=== PATIENT | female | born 1980 | race Caucasian/White ===

== ENCOUNTER 2018-02-10 12:58 | Inpatient (IN) | payer OTHER ==
--- NOTE | 2018-02-10 13:42 | PCM.LDHP ---
L&D History of Present Illness - General Date of Service: 02/10/18 Admit Problem/Dx: Admission Diagnosis/Problem Admission Diagnosis/Problem Source of Information: Patient History Limitations: Reports: No Limitations - History of Present Illness Introduction:: 37-year-old 008 DES 02/10/18 at 40 weeks gestation estimated age presented to labor and delivery 9 cm dilated and delivered promptly thereafter. Group B strep negative. Patient of Dr. Gonzales Improves with: Reports: None Worsens with: Reports: None Associated Symptoms: Reports: N - Related Data Allergies/Adverse Reactions: Allergies Allergy/AdvReac Type Severity Reaction Status Date / Time peanut Allergy Unknown Hives Verified 05/28/16 14:18 Home Medications: Home Meds Lactobacillus Acidophilus [Probiotic] 1 tab PO DAILY 06/29/14 [History] #48/Iron Cb&Glu/FA/B6 [Citranatal B-Calm Combo Pack] 1 each PO DAILY [History] Ibuprofen [IJD: Ibuprofen] 600 mg PO Q4H PRN #30 tablet 05/30/16 [Rx] Past Medical History - Past Health History Medical/Surgical History: Denies Medical/Surgical History [employer] History: Reports: - Past Surgical History HEENT Surgical History: Reports: Oral Surgery Dermatological Surgical History: Reports: Other (See Below) Social & Family History - Tobacco Use Smoking Status *Q: Never Smoker - Recreational Drug Use Recreational Drug Use: No H&P Review of Systems - Review of Systems: Review Of Systems: See Below General: Reports: No Symptoms HEENT: Reports: No Symptoms Pulmonary: Reports: No Symptoms Cardiovascular: Reports: No Symptoms Gastrointestinal: Reports: No Symptoms Genitourinary: Reports: No Symptoms Musculoskeletal: Reports: No Symptoms Skin: Reports: No Symptoms Psychiatric: Reports: No Symptoms Neurological: Reports: No Symptoms Hematologic/Lymphatic: Reports: No Symptoms Immunologic: Reports: No Symptoms L&D Exam - Exam Exam: See Below - OB Specific Fundal Height In cm: 39 Contraction Duration (sec): 60 Contraction Frequency (min): 2 Contraction Intensity: Strong Movement: Active Heart Tones: Present Heart Tones per Min: 135 Heart Rate (FHR) Variability: Moderate (6-25 bmp) Presentation: Vertex - Stovall Score Stovall Score Cervix Position: Anterior Stovall Score Consistency: Soft Stovall Score Effacement: >80% Stovall Score Dilation: > 5 cm Stovall Score 's Station: +1, +2 Stovall Score Total: 13 - Exam General: Alert, Oriented HEENT: Conjunctiva Clear, Mucosa Moist & [place], PERRLA Neck: Supple, Trachea Midline Lungs: Clear to Auscultation, Normal Respiratory Effort Cardiovascular: Regular Rate, Regular Rhythm GI/Abdominal Exam: Normal Bowel Sounds, Soft, Non-Tender Genitourinary: Normal external exam, Normal bimanual exam, Normal speculum exam Extremities: Normal Inspection, Normal Range of Motion, Non-Tender, No Pedal Edema, Normal Capillary Refill Skin: Warm, Dry, Intact Psychiatric: Alert, Normal Affect, Normal Mood - Problem List (1) 40 weeks gestation of SNOMED Code(s): 12377056 ICD Code: Z3A.40 - 40 WEEKS GESTATION OF Status: Acute Current Visit: Yes Problem List Initiated/Reviewed/Updated: No Assessment/Plan Comment:: Plan delivery
--- NOTE | 2018-02-10 13:50 | PCM.DEL ---
L & D Note - General Info Date of Service: 02/10/18 Mother's Due Date: 02/10/18 - Delivery Note Labor: Spontaneous Delivery Outcome: Livebirth Infant Delivery Method: Spontaneous Vaginal Delivery-Single Delivery Mode: Spontaneous Presentation: Left Occiput Anterior (TROY) (Delivered 1327 hrs. 02/10 under no anesthesia over no episiotomy without laceration TROY female liveborn weight pending Apgars 8/9 thick meconium-stained amnionic fluid, nuchal cord 1, true knot in the cord, velamentous insertion of the cord.) Nuchal Cord: Present (Nuchal cord 1, true knot in the cord, velamentous insertion of the cord meconium-stained amnionic fluid) Prep: Povidone-Iodine (Betadine Anesthesia Type: None Amniotic Fluid Description: Meconium Stained Episiotomy Type: None Laceration: None Placenta: Intact, Spontaneous (Delivered at 13 ) Cord: 3 Vessels Estimated Blood Loss: 250 Resuscitation Needed: No : Suctioned, Bulb Syringe, Stimulated, Warmed, Starks Used, Warmer Used Provider: Olaf Thompson Score 1 min: 8 Score 5 min: 9 - Patient Data Lab Results Last 24 Hours: Laboratory Results - last 24 hr 02/10/18 Range/Units 13:37 POC Glucose 64 L (70-105) mg/dL - Problem List & Annotations (1) 40 weeks gestation of SNOMED Code(s): 06920009 Code(s): Z3A.40 - 40 WEEKS GESTATION OF Status: Acute Current Visit: Yes (2) Insertion, velamentous, umbilical cord SNOMED Code(s): 81824547 Code(s): O43.129 - VELAMENTOUS INSERTION OF UMBILICAL CORD, UNSP TRIMESTER Status: Acute Current Visit: Yes Qualifiers: Trimester: third trimester Qualified Code(s): O43.123 - Velamentous insertion of umbilical cord, third trimester (3) True knot of umbilical cord, delivered SNOMED Code(s): 06258009 Code(s): O69.2XX0 - LABOR AND DEL COMP BY OTH CORD ENTANGLE, W COMPRSN, UNSP Status: Acute Current Visit: Yes (4) Nuchal cord without compression, delivered, current hospitalization SNOMED Code(s): 12889155 Code(s): O69.81X0 - LABOR AND DEL COMP BY CORD AROUND NECK, W/O COMPRSN, UNSP Status: Acute Current Visit: Yes (5) Meconium stained amniotic fluid, delivered, current hospitalization SNOMED Code(s): 244429957 Code(s): O77.0 - LABOR AND DELIVERY COMPLICATED BY MECONIUM IN AMNIOTIC FLUID Status: Acute Current Visit: Yes (6) Labor, precipitous, delivered SNOMED Code(s): 080782878 Code(s): O62.3 - PRECIPITATE LABOR Status: Acute Current Visit: Yes (7) Grand multiparity in labor and delivery, delivered SNOMED Code(s): 440061608 Code(s): O09.40 - SUPERVISION OF W GRAND MULTIPARITY, UNSP TRIMESTER Status: Acute Current Visit: Yes - Problem List Review Problem List Initiated/Reviewed/Updated: No - Assessment Assessment:: Delivery accomplished quickly upon arrival to the hospital - Plan Plan:: Plan delivery
[2018-02-10] MEDS ORDERED: Acetaminophen 325 MG Tab PO PRN (14:40)
[2018-02-10] MEDS ORDERED: Docusate Sodium 100 MG Cap PO PRN (14:40)
[2018-02-10] MEDS ORDERED: Benzocaine/Menthol 20%-0.5% Spray 56 GM Canister TOP PRN (14:40)
[2018-02-10] MEDS ORDERED: Ibuprofen 600 MG Tab PO PRN (14:40)
[2018-02-10] MEDS ORDERED: Witch Hazel Medicated Pads 100/Jar TOP PRN (14:40)
[2018-02-10] MEDS ORDERED: Lanolin 100% Cream 7 GM Tube TOP PRN (14:40)
[2018-02-10] MEDS ORDERED: Oxytocin 10 Units/1 ML SDV IM ONE (19:21)
--- NOTE | 2018-02-11 08:24 | PCM.DCSUM1 ---
Discharge Summary - Hospital Course Free Text/Narrative:: [facility] L/[facility] Delivery Note Patient Name: QUITA BETANCUR Date of : 80 Patient Status: Inpatient Attending Provider: Olaf Thompson Date: 02/10/18 13:47 Initialization Date: 02/10/18 13:47 L & D Note - General Info Date of Service: 02/10/18 Mother's Due Date: 02/10/18 - Delivery Note Labor: Spontaneous Delivery Outcome: Livebirth Delivery Method: Spontaneous Vaginal Delivery-Single Infant Delivery Mode: Spontaneous Presentation: Left Occiput Anterior (TROY) (Delivered 1327 hrs. 02/10 under no anesthesia over no episiotomy without laceration TROY female liveborn weight pending Apgars 8/9 thick meconium-stained amnionic fluid, nuchal cord 1, true knot in the cord, velamentous insertion of the cord.) Nuchal Cord: Present (Nuchal cord 1, true knot in the cord, velamentous insertion of the cord meconium-stained amnionic fluid) Prep: Povidone-Iodine (Betadine Anesthesia Type: None Amniotic Fluid Description: Meconium Stained Episiotomy Type: None Laceration: None Placenta: Intact, Spontaneous (Delivered at ) Cord: 3 Vessels Estimated Blood Loss: 250 Resuscitation Needed: No : Suctioned, Bulb Syringe, Stimulated, Warmed, [place] Used, Warmer Used Provider: Olaf Thompson Score 1 min: 8 Score 5 min: 9 - Patient Data Lab Results Last 24 Hours: Laboratory Results - last 24 hr 02/10/18 Range/Units 13:37 POC Glucose 64 L (70-105) mg/dL - Problem List & Annotations (1) 40 weeks gestation of SNOMED Code(s): 28421176 Code(s): Z3A.40 - 40 WEEKS GESTATION OF Status: Acute Current Visit: Yes (2) Insertion, velamentous, umbilical cord SNOMED Code(s): 03415992 Code(s): O43.129 - VELAMENTOUS INSERTION OF UMBILICAL CORD, UNSP TRIMESTER Status: Acute Current Visit: Yes Qualifiers: Trimester: third trimester Qualified Code(s): O43.123 - Velamentous insertion of umbilical cord, third trimester (3) True knot of umbilical cord, delivered SNOMED Code(s): 14773716 Code(s): O69.2XX0 - LABOR AND DEL COMP BY OTH CORD ENTANGLE, W COMPRSN, UNSP Status: Acute Current Visit: Yes (4) Nuchal cord without compression, delivered, current hospitalization SNOMED Code(s): 70088128 Code(s): O69.81X0 - LABOR AND DEL COMP BY CORD AROUND NECK, W/O COMPRSN, UNSP Status: Acute Current Visit: Yes (5) Meconium stained amniotic fluid, delivered, current hospitalization SNOMED Code(s): 530279647 Code(s): O77.0 - LABOR AND DELIVERY COMPLICATED BY MECONIUM IN AMNIOTIC FLUID Status: Acute Current Visit: Yes (6) Labor, precipitous, delivered SNOMED Code(s): 541454764 Code(s): O62.3 - PRECIPITATE LABOR Status: Acute Current Visit: Yes (7) Grand multiparity in labor and delivery, delivered SNOMED Code(s): 022685059 Code(s): O09.40 - SUPERVISION OF W GRAND MULTIPARITY, UNSP TRIMESTER Status: Acute Current Visit: Yes - Problem List Review Problem List Initiated/Reviewed/Updated: No - Assessment Assessment:: Delivery accomplished quickly upon arrival to the hospital - Plan Plan:: Plan delivery HPI Initial Comments: [facility] L/D Delivery Note Patient Name: QUITA BETANCUR Date of : 80 Patient Status: Inpatient Attending Provider: Olaf Thompson Date: 02/10/18 13:47 Initialization Date: 02/10/18 13:47 L & D Note - General Info Date of Service: 02/10/18 Mother's Due Date: 02/10/18 - Delivery Note Labor: Spontaneous Delivery Outcome: Livebirth Infant Delivery Method: Spontaneous Vaginal Delivery-Single Infant Delivery Mode: Spontaneous Presentation: Left Occiput Anterior (TROY) (Delivered 1327 hrs. 02/10 under no anesthesia over no episiotomy without laceration TROY female liveborn weight pending Apgars 8/9 thick meconium-stained amnionic fluid, nuchal cord 1, true knot in the cord, velamentous insertion of the cord.) Nuchal Cord: Present (Nuchal cord 1, true knot in the cord, velamentous insertion of the cord meconium-stained amnionic fluid) Prep: Povidone-Iodine (Betadine Anesthesia Type: None Amniotic Fluid Description: Meconium Stained Episiotomy Type: None Laceration: None Placenta: Intact, Spontaneous (Delivered at 13 ) Cord: 3 Vessels Estimated Blood Loss: 250 Resuscitation Needed: No [place]: Suctioned, Bulb Syringe, Stimulated, Warmed, Udall Used, Warmer Used Provider: Olaf Thompson Score 1 min: 8 Score 5 min: 9 - Patient Data Lab Results Last 24 Hours: Laboratory Results - last 24 hr 02/10/18 Range/Units 13:37 POC Glucose 64 L (70-105) mg/dL - Problem List & Annotations (1) 40 weeks gestation of SNOMED Code(s): 96416456 Code(s): Z3A.40 - 40 WEEKS GESTATION OF Status: Acute Current Visit: Yes (2) Insertion, velamentous, umbilical cord SNOMED Code(s): 89494073 Code(s): O43.129 - VELAMENTOUS INSERTION OF UMBILICAL CORD, UNSP TRIMESTER Status: Acute Current Visit: Yes Qualifiers: Trimester: third trimester Qualified Code(s): O43.123 - Velamentous insertion of umbilical cord, third trimester (3) True knot of umbilical cord, delivered SNOMED Code(s): 13569233 Code(s): O69.2XX0 - LABOR AND DEL COMP BY OTH CORD ENTANGLE, W COMPRSN, UNSP Status: Acute Current Visit: Yes (4) Nuchal cord without compression, delivered, current hospitalization SNOMED Code(s): 94439524 Code(s): O69.81X0 - LABOR AND DEL COMP BY CORD AROUND NECK, W/O COMPRSN, UNSP Status: Acute Current Visit: Yes (5) Meconium stained amniotic fluid, delivered, current hospitalization SNOMED Code(s): 746321880 Code(s): O77.0 - LABOR AND DELIVERY COMPLICATED BY MECONIUM IN AMNIOTIC FLUID Status: Acute Current Visit: Yes (6) Labor, precipitous, delivered SNOMED Code(s): 740273490 Code(s): O62.3 - PRECIPITATE LABOR Status: Acute Current Visit: Yes (7) Grand multiparity in labor and delivery, delivered SNOMED Code(s): 936398412 Code(s): O09.40 - SUPERVISION OF W GRAND MULTIPARITY, UNSP TRIMESTER Status: Acute Current Visit: Yes - Problem List Review Problem List Initiated/Reviewed/Updated: No - Assessment Assessment:: Delivery accomplished quickly upon arrival to the hospital - Plan Plan:: Plan delivery Brief History: [facility] . L/D Delivery Note. Patient Name: QUITA BETANCUR Record Number: [id number]. Date of : Patient Status: Inpatient. Attending Provider: Olaf Thompson Number: [id number]. Date: 02/10/18 13:47Initialization Date: 02/10/18 13:47. L & D Note. - General Info. Date of Service: 02/10/18. Mother's Due Date: 02/10/18. - Delivery Note. Labor: Spontaneous. Delivery Outcome: Livebirth. Delivery Method: Spontaneous Vaginal Delivery-Single. Infant Delivery Mode: Spontaneous. Presentation: Left Occiput Anterior (TROY) (Delivered 1327 hrs. Sunday02/10/18 under no anesthesia over no episiotomy without laceration TROY female liveborn weight pending Apgars 8/9 thick meconium-stained amnionic fluid, nuchal cord 1, true knot in the cord, velamentous insertion of the cord.). Nuchal Cord: Present (Nuchal cord 1, true knot in the cord, velamentous insertion of the cord meconium-stained amnionic fluid). Prep: Povidone-Iodine (Betadine. Anesthesia Type: None. Amniotic Fluid Description: Meconium Stained. Episiotomy Type: None. Laceration: None. Placenta: Intact, Spontaneous (Delivered at ). Cord: 3 Vessels. Estimated Blood Loss: 250. Resuscitation Needed: No. : Suctioned, Bulb Syringe, Stimulated, Warmed, Udall Used, Warmer Used. Provider: Olaf Thompson. Score 1 min: 8. Score 5 min: 9. - Patient Data. Lab Results Last 24 Hours: Laboratory Results - last 24 hr. 02/10/18Range/Units. 13:37. POC Glucose 64 L (70-105) mg/dL. - Problem List & Annotations. (1) 40 weeks gestation of . SNOMED Code(s): 72948219. Code(s): Z3A.40 - 40 WEEKS GESTATION OF Status: Acute Current Visit: Yes. (2) Insertion, velamentous, umbilical cord. SNOMED Code(s): 38962229. Code(s): O43.129 - VELAMENTOUS INSERTION OF UMBILICAL CORD, UNSP TRIMESTER Status: Acute Current Visit: Yes. Qualifiers: Trimester: third trimester Qualified Code(s): O43.123 - Velamentous insertion of umbilical cord, third trimester. (3) True knot of umbilical cord, delivered. SNOMED Code(s): 59769895. Code(s): O69.2XX0 - LABOR AND DEL COMP BY OTH CORD ENTANGLE, W COMPRSN, UNSP Status: Acute Current Visit: Yes. (4) Nuchal cord without compression, delivered, current hospitalization. SNOMED Code(s): 36785120. Code(s): O69.81X0 - LABOR AND DEL COMP BY CORD AROUND NECK, W/O COMPRSN, UNSP Status: Acute Current Visit: Yes. (5) Meconium stained amniotic fluid, delivered, current hospitalization. SNOMED Code(s): 751463683. Code(s): O77.0 - LABOR AND DELIVERY COMPLICATED BY MECONIUM IN AMNIOTIC FLUID Status: Acute Current Visit: Yes. (6) Labor, precipitous, delivered. SNOMED Code(s): 667458324. Code(s): O62.3 - PRECIPITATE LABOR Status: Acute Current Visit: Yes. (7) Grand multiparity in labor and delivery, delivered. SNOMED Code(s): 472198852. Code(s): O09.40 - SUPERVISION OF W GRAND MULTIPARITY, UNSP TRIMESTER Status: Acute Current Visit: Yes. - Problem List Review. Problem List Initiated/Reviewed/Updated: No. - Assessment. Assessment:: Delivery accomplished quickly upon arrival to the hospital. - Plan. Plan:: Plan delivery - Discharge Data Discharge Date: 02/11/18 Discharge Disposition: Home, Self-Care 01 Condition: Good - Discharge Diagnosis/Problem(s) (1) 40 weeks gestation of SNOMED Code(s): 44378893 ICD Code: Z3A.40 - 40 WEEKS GESTATION OF Status: Acute Current Visit: Yes (2) Insertion, velamentous, umbilical cord SNOMED Code(s): 10610883 ICD Code: O43.129 - VELAMENTOUS INSERTION OF UMBILICAL CORD, UNSP TRIMESTER Status: Acute Current Visit: Yes Qualifiers: Trimester: third trimester Qualified Code(s): O43.123 - Velamentous insertion of umbilical cord, third trimester (3) True knot of umbilical cord, delivered SNOMED Code(s): 03195892 ICD Code: O69.2XX0 - LABOR AND DEL COMP BY OTH CORD ENTANGLE, W COMPRSN, UNSP Status: Acute Current Visit: Yes (4) Nuchal cord without compression, delivered, current hospitalization SNOMED Code(s): 29133568 ICD Code: O69.81X0 - LABOR AND DEL COMP BY CORD AROUND NECK, W/O COMPRSN, UNSP Status: Acute Current Visit: Yes (5) Meconium stained amniotic fluid, delivered, current hospitalization SNOMED Code(s): 808461891 ICD Code: O77.0 - LABOR AND DELIVERY COMPLICATED BY MECONIUM IN AMNIOTIC FLUID Status: Acute Current Visit: Yes (6) Labor, precipitous, delivered SNOMED Code(s): 316709642 ICD Code: O62.3 - PRECIPITATE LABOR Status: Acute Current Visit: Yes (7) Grand multiparity in labor and delivery, delivered SNOMED Code(s): 757394184 ICD Code: O09.40 - SUPERVISION OF W GRAND MULTIPARITY, UNSP TRIMESTER Status: Acute Current Visit: Yes - Patient Summary/Data Complications: None Consults: None Hospital Course: Uneventful - Patient Instructions Diet: Regular Diet as Tolerated Driving: Do Not Drive (48 hours) Showering/Bathing: May Shower Notify Provider of: Fever, Increased Pain, Swelling and Redness, Drainage, Nausea and/or Vomiting - Discharge Plan Home Medications: Home Meds Lactobacillus Acidophilus [Probiotic] 1 tab PO DAILY 06/29/14 [History] #48/Iron Cb&Glu/FA/B6 [Citranatal B-Calm Combo Pack] 1 each PO DAILY [History] Acetaminophen [Tylenol] 650 mg PO Q4H PRN tablet 02/11/18 [Rx] Benzocaine/Menthol [Dermoplast Pain Relief [place]] 1 spray TOP ASDIRECTED PRN canister 02/11/18 [Rx] Docusate Sodium [Colace] 100 mg PO BID PRN cap 02/11/18 [Rx] Ibuprofen [IJD: Ibuprofen] 600 mg PO Q4H PRN tablet 02/11/18 [Rx] Lanolin [Lansinoh HPA] 1 applic TOP ASDIRECTED PRN tube 02/11/18 [Rx] Referrals: Abel Knox MD [Primary Care Provider] - (2 weeks) - Discharge Summary/Plan Comment DC Time >30 min.: No - Patient Data Vitals - Most Recent: Last Vital Signs Temp 98.5 F 02/11/18 04:00 Pulse 55 L 02/11/18 04:00 Resp 18 02/11/18 04:00 BP 99/62 02/11/18 04:00 Pulse Ox 99 02/11/18 04:00 Weight - Most Recent: 142 lb 8 oz I&O - Last 24 hours: Intake & Output 02/10/18 02/11/18 02/11/18 22:59 06:59 14:59 Intake Total 0 Balance 0 Lab Results - Last 24 hrs: Laboratory Results - last 24 hr 02/10/18 02/10/18 02/11/18 Range/Units 13:37 14:52 05:56 WBC 16.15 H 14.27 H (3.98-10.04) K/mm3 RBC 4.50 4.32 (3.98-5.22) M/mm3 Hgb 12.3 11.8 (11.2-15.7) gm/L Hct 36.9 35.5 (34.1-44.9) % MCV 82.0 82.2 (79.4-94.8) fl MCH 27.3 27.3 (25.6-32.2) pg MCHC 33.3 33.2 (32.2-35.5) g/dl RDW Std Deviation 38.8 39.3 (36.4-46.3) fL Plt Count 275 266 (182-369) K/mm3 MPV 10.5 10.3 (9.4-12.3) fl Neut % (Auto) 90.1 H 77.5 H (34.0-71.1) % Lymph % (Auto) 5.2 L 13.7 L (19.3-51.7) % Lake % (Auto) 4.0 L 7.2 (4.7-12.5) % Eos % (Auto) 0.1 L 0.6 L (0.7-5.8) Baso % (Auto) 0.1 0.1 (0.1-1.2) % Neut # (Auto) 14.57 H 11.05 H (1.56-6.13) K/mm3 Lymph # (Auto) 0.84 L 1.96 (1.18-3.74) K/mm3 Lake # (Auto) 0.64 H 1.03 H (0.24-0.36) K/mm3 Eos # (Auto) 0.01 L 0.08 (0.04-0.36) K/mm3 Baso # (Auto) 0.01 0.02 (0.01-0.08) K/mm3 Manual Slide Review Abnormal smear Normal smear POC Glucose 64 L (70-105) mg/dL Med Orders - Current: Current Medications Acetaminophen (Tylenol) 650 mg PO Q4H PRN PRN Reason: mild pain or fever Benzocaine/Menthol (Dermoplast Pain Relief [place]) 0 gm TOP ASDIRECTED PRN PRN Reason: Perineal Comfort Measure Docusate Sodium (Colace) 100 mg PO BID PRN PRN Reason: Constipation Emollient Ointment (Lansinoh Hpa) 0 gm TOP ASDIRECTED PRN PRN Reason: Sore Nipples Ibuprofen (Motrin) 600 mg PO Q4H PRN PRN Reason: Mild pain or fever Last Admin: 02/10/18 20:19 Dose: 600 mg Witch [place] (Tucks) 1 pad TOP ASDIRECTED PRN PRN Reason: Hemorrhoid pain Discontinued Medications Oxytocin (Pitocin) 10 unit IM ONETIME ONE Stop: 02/10/18 19:22 Last Admin: 02/10/18 19:27 Dose: 10 unit
[2018-02-11 13:52] VITALS: BP 106/62
== END 2018-02-11 15:17 | disposition home or self-care (01) | DRG 775 ==
LOC: JD.OBCHECK 12:58 → JD.OB 12:58 → JD.OBCHECK 13:20 → JD.OB 13:20 → OBSVTOIN 13:27 → JD.OB 13:28
PROVIDERS: ADMIT Obstetrics & Gynecology; ATTEND Obstetrics & Gynecology
PROC: 10E0XZZ Delivery of Products of Conception, External Approach (ICD-10-PCS; principal; 2018-02-10)
DX: O77.0 Labor and delivery complicated by meconium in amniotic fluid (principal); Z37.0 Single live birth; O69.81X0 Labor and delivery complicated by cord around neck, without compression, not applicable or unspecified; O69.2XX0 Labor and delivery complicated by other cord entanglement, with compression, not applicable or unspecified; O43.123 Velamentous insertion of umbilical cord, third trimester; O62.3 Precipitate labor; Z3A.40 40 weeks gestation of pregnancy; Z91.010 Allergy to peanuts
CPT/HCPCS: 36415; 59409; 82962; 85025; A9270-GY; J2590

== ENCOUNTER 2020-03-25 13:13 | Inpatient (IN) | payer SELFPAY ==
[2020-03-25] MEDS ORDERED: Sodium Chloride 0.9% 10 ML Syringe FLUSH PRN (13:31)
[2020-03-25] MEDS ORDERED: Nalbuphine 10 MG/ML Syringe IVPUSH PRN (13:31)
[2020-03-25] MEDS ORDERED: Lactated Ringers 1,000 ML IV SCH (13:45)
[2020-03-25] MEDS ORDERED: Oxytocin/Lactated Ringers 10 UNIT/1,000 ML BAG IV SCH (13:45)
[2020-03-25] MEDS ORDERED: Acetaminophen 325 MG Tab PO PRN (14:14)
[2020-03-25] MEDS ORDERED: Ibuprofen 600 MG Tab PO PRN (14:14)
[2020-03-25] MEDS ORDERED: Docusate Sodium 100 MG Cap PO PRN (14:14)
[2020-03-25] MEDS ORDERED: Lidocaine 1% 50 ML MDV INJECT ONE (18:00)
--- NOTE | 2020-03-25 18:23 | PCM.LDHP ---
L&D History of Present Illness - General Date of Service: 03/25/20 Admit Problem/Dx: Patient Status Order with Admit Dx/Problem 03/25/20 13:31 Patient Status [ADT] Routine 03/25/20 14:14 Patient Status [ADT] Routine 03/25/20 17:08 Patient Status [ADT] Routine Admission Diagnosis/Problem Admission Diagnosis/Problem Spontaneous vaginal delivery 03/25/20 18:13 Teresa is a 40-year-old 10 now para 10 00 10 white female who is 40-0/ 7 weeks gestational age today with an DES of 03/25/2020 who is sent to labor and delivery after being seen in clinic for active labor and 5 cm cervical dilation , 90% effacement, bulging bag mckenzie, anterior position, -2 station. She delivered shortly after arrival in labor and delivery. History and physical was performed after the delivery. She delivered a viable, luz, male infant with Apgars of 8 and 9, weight of 3590 g(7 lbs. 15 oz.) at 1356 hrs. on 2019. Length was 20.5 inches. The delivery was unattended by physician. Estimated blood loss was 200 mL. Perineum was intact. Patient nursed after delivery to facilitate increase in uterine tone and decrease likelihood of bleeding. IV had not been started prior to the delivery. Source of Information: Patient History Limitations: Reports: No Limitations - History of Present Illness Introduction:: Teresa is a 40-year-old 10 now para 10 00 10 white female who is 40-0/ 7 weeks gestational age today with an DES of 03/25/2020 who is sent to labor and delivery after being seen in clinic for active labor and 5 cm cervical dilation , 90% effacement, bulging bag mckenzie, anterior position, -2 station. She delivered shortly after arrival in labor and delivery. History and physical was performed after the delivery. She delivered a viable, luz, male infant with Apgars of 8 and 9, weight of 3590 g(7 lbs. 15 oz.) at 1356 hrs. on 2019. Length was 20.5 inches. The delivery was unattended by physician. Estimated blood loss was 200 mL. Perineum was intact. Patient nursed after delivery to facilitate increase in uterine tone and decrease likelihood of bleeding. IV had not been started prior to the delivery. 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 Cycles every 28 days. Duration 5 days. Using no control at the time of conception. Certain last menstrual period started on 06/19/2019. Patient is a 10 now para [address] her at 40 and 07 weeks gestational age. DES determined by certain LMP starting 06/19/2019 and supported by 2 ultrasounds done during the course of the . Patient had her first visit on 10/23/2019 at 18 weeks gestational age. She seen on a reasonably regular basis throughout . Her weight gain was from 119 pounds up to 143 pounds. This was a 24 pound increase. Vital signs stable throughout the course and fundal height growth was appropriate for dates. Patient is group B strep negative. She declined genetic evaluation. She desired natural labor. She refused her 1 hour GTT. Risk factors included the following: Age of 40, grand multiparity Laboratory testing in : Patient has a positive MMR and is therefore rubella immune. Her blood is B+ with a negative antibody screen. First hemoglobin was 13.4 g/dL and platelets are 267,000. She is rubella immune. RPR is nonreactive. Urine culture was unremarkable. Hepatitis B surface antigen was negative. Chlamydia and gonorrhea assays were both negative. This patient refuses second trimester laboratory testing specifically the one hour GTT. On 09/2020 or hemoglobin was 13.0 and her platelets were 208,000. Group B strep screen was negative. Allergies: Mucinexgives patient headache Medications: 1. vitamins daily 2. Magnesium daily 3. Probiotic 1 daily. Past medical history: 1. Normal spontaneous vaginal delivery 10. 2. Exercise induced asthma. 3. Mild eczema Past surgical history: Oral surgery in 1997 Family history: Mother and father are alive. Father has hypertension. 2 brothers 1 with cerebral palsy another with a nerve or muscle deterioration condition. 2 sisters ones with headaches that are chronic in nature the other is healthy. There are no bleeding, clotting, anesthesia problems noted in the family. Social history: Patient is . 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 She is a high school graduate. 's name is Ten. She does not use any significant most alcohol , drugs or tobacco. Review of systems: Done after delivery is as follows: Review of systems: In general patient had no complaints other than labor pains. Skin: Negative Lungs: No infectious symptoms or shortness of breath Cardiovascular: No chest pain or exercise intolerance Breasts: No lumps, changes in size, pain, dimpling, discharge or axillary or supraclavicular concerns. GI: Negative : Negative Musculoskeletal: Negative Neurological: Negative On physical exam done in clinic findings were as follows: In general the patient is well-developed, well-nourished, pleasant female of stated age in no moderate distress secondary to labor. Skin is warm dry without lesions. HEENT, neck and back within normal limits. Lungs are clear with good breath sounds in all lung patel. Cardiovascular exam shows regular and rhythm without murmurs. Abdomen is gravid with fundal height of 40 cm. Genital exam shows cervix to be 5 cm, 90% effaced, -2 station, anterior, very soft, cephalic presentation. Extremities and neurological exam are grossly within normal limits. - Related Data Allergies/Adverse Reactions: Allergies Allergy/AdvReac Type Severity Reaction Status Date / Time peanut Allergy Unknown Hives Verified 03/25/20 13:35 Home Medications: Home Meds Lactobacillus Acidophilus [Probiotic] 1 tab PO DAILY 06/29/14 [History] 48/Iron/Folic Acid/B6 [Citranatal B-Calm Combo Pack] 1 each PO DAILY [History] Acetaminophen [Tylenol] 650 mg PO Q4H PRN tablet 02/11/18 [Rx] Benzocaine/Menthol [Dermoplast Pain Relief [place]] 1 spray TOP ASDIRECTED PRN canister 02/11/18 [Rx] Docusate Sodium [Colace] 100 mg PO BID PRN cap 02/11/18 [Rx] Ibuprofen [IJD: Ibuprofen] 600 mg PO Q4H PRN tablet 02/11/18 [Rx] Lanolin [Lansinoh HPA] 1 applic TOP ASDIRECTED PRN tube 02/11/18 [Rx] Past Medical History - Past Health History Medical/Surgical History: Denies Medical/Surgical History Respiratory History: Reports: Asthma 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: Dermatologic History: Reports: Eczema - Past Surgical History HEENT Surgical History: Reports: Oral Surgery Dermatological Surgical History: Reports: Other (See Below) Social & Family History - Caffeine Use Caffeine Use: Reports: Coffee, Tea H&P Review of Systems - Review of Systems: Review Of Systems: See Below L&D Exam - Exam Exam: See Below - Vital Signs Weight: 68.946 kg - Patient Data Lab Results Last 24 hrs: Laboratory Results - last 24 hr 03/25/20 03/25/20 Range/Units 13:50 13:50 WBC 14.61 H (3.98-10.04) K/mm3 RBC 5.15 (3.98-5.22) M/mm3 Hgb 14.3 (11.2-15.7) gm/dl Hct 42.9 (34.1-44.9) % MCV 83.3 (79.4-94.8) fl MCH 27.8 (25.6-32.2) pg MCHC 33.3 (32.2-35.5) g/dl RDW Std Deviation 41.5 (36.4-46.3) fL Plt Count 192 (182-369) K/mm3 MPV 11.5 (9.4-12.3) fl Neut % (Auto) 82.4 H (34.0-71.1) % Lymph % (Auto) 10.9 L (19.3-51.7) % [place] % (Auto) 5.9 (4.7-12.5) % Eos % (Auto) 0.3 L (0.7-5.8) Baso % (Auto) 0.1 (0.1-1.2) % Neut # (Auto) 12.04 H (1.56-6.13) K/mm3 Lymph # (Auto) 1.59 (1.18-3.74) K/mm3 [place] # (Auto) 0.86 H (0.24-0.36) K/mm3 Eos # (Auto) 0.05 (0.04-0.36) K/mm3 Baso # (Auto) 0.01 (0.01-0.08) K/mm3 Blood Type B POSITIVE Gel Antibody Screen Negative Result Diagrams: 03/25/20 13:50 Problem List Initiated/Reviewed/Updated: Yes Orders Last 24hrs: Active Orders 24 hr Category Date Time Status Patient Status [ADT] Routine ADT 03/25/20 14:14 Active Patient Status [ADT] Routine ADT 03/25/20 17:08 Active Activity as Tolerated [RC] PER UNIT ROUTINE Care 03/25/20 14:14 Active Activity as Tolerated [RC] PER UNIT ROUTINE Care 03/25/20 17:08 Active Activity as Tolerated [RC] PFP Care 03/25/20 13:31 Active Communication Order [RC] ASDIRECTED Care 03/25/20 13:31 Active Notify Provider [RC] PFP Care 03/25/20 13:31 Active Notify Provider [RC] PRN Care 03/25/20 13:31 Active Vital Signs [RC] 03,09,15,21 Care 03/25/20 14:14 Active Vital Signs [RC] PER UNIT ROUTINE Care 03/25/20 13:31 Active Regular Diet [DIET] Diet 03/25/20 Dinner Active RAPID PLASMA REAGIN,RPR [CHEM] Routine Lab 03/25/20 13:50 Received Acetaminophen [Tylenol] Med 03/25/20 14:14 Active 650 mg PO Q4H PRN Docusate Sodium [Colace] Med 03/25/20 14:14 Active 100 mg PO BID PRN Ibuprofen [Motrin] Med 03/25/20 14:14 Active 600 mg PO Q4H PRN Lactated Ringers [Ringers, Lactated] 1,000 ml Med 03/25/20 13:45 Active IV ASDIRECTED Nalbuphine [Nubain] Med 03/25/20 13:31 Active 10 mg IVPUSH Q2H PRN Oxytocin/Lactated Ringers [Pitocin in LR 10 Units/1,000 Med 03/25/20 13:45 Active ML] 10 unit in 1,000 ml IV .CONTINUOUS Sodium Chloride 0.9% [Saline Flush] Med 03/25/20 13:31 Active 10 ml FLUSH ASDIRECTED PRN Assess Lochia [WOMSER] Per Unit Routine Oth 03/25/20 14:14 Ordered Assess Lochia [WOMSER] Per Unit Routine Oth 03/25/20 17:08 Ordered Assess Uterine Involution [WOMSER] Per Unit Routine Oth 03/25/20 14:14 Ordered Assess Uterine Involution [WOMSER] Per Unit Routine Oth 03/25/20 17:08 Ordered Breast Pump [WOMSER] Per Unit Routine Oth 03/25/20 14:14 Ordered Breast Pump [WOMSER] Per Unit Routine Oth 03/25/20 17:08 Ordered Electronic Heart Tones Ext w TOCO [WOMSER] Ot 03/25/20 13:31 Ordered Routine Electronic Heart Tones Internal [WOMSER] Per Unit Ot 03/25/20 13:31 Ordered Routine Heat Therapy [OM.PC] PRN Ot 03/25/20 14:15 Ordered Heat Therapy [OM.PC] PRN Ot 03/25/20 17:15 Ordered Heat Therapy [OM.PC] PRN Ot 03/26/20 14:15 Ordered Heat Therapy [OM.PC] PRN Ot 03/26/20 17:15 Ordered Medication Administration Instruction [OM.PC] Routine Ot 03/25/20 17:08 Ordered Perineal Care [OM.PC] Per Unit Routine Ot 03/25/20 14:14 Ordered Perineal Care [OM.PC] Per Unit Routine Ot 03/25/20 17:08 Ordered Peripheral IV Insertion Adult [OM.PC] Routine Ot 03/25/20 13:31 Ordered Sitz Bath [OM.PC] Per Unit Routine Ot 03/25/20 14:14 Ordered Sitz Bath [OM.PC] Per Unit Routine Ot 03/25/20 17:08 Ordered Resuscitation Status Routine Resus Stat 03/25/20 13:31 Ordered Medication Orders Acetaminophen (Tylenol) 650 mg PO Q4H PRN PRN Reason: mild pain or fever Docusate Sodium (Colace) 100 mg PO BID PRN PRN Reason: Constipation Lactated Ringer's (Ringers, Lactated) 1,000 mls @ 100 mls/hr IV ASDIRECTED PEYTON Oxytocin/Lactated Ringer's (Pitocin In Lr 10 Units/1,000 Ml) 10 unit in 1,000 mls @ 500 mls/hr IV .CONTINUOUS PEYTON Ibuprofen (Motrin) 600 mg PO Q4H PRN PRN Reason: Mild pain or fever Nalbuphine HCl (Nubain) 10 mg IVPUSH Q2H PRN PRN Reason: Pain Sodium Chloride (Saline Flush) 10 ml FLUSH ASDIRECTED PRN PRN Reason: Keep Vein Open Assessment/Plan Comment:: 1. 40-0/7 week intrauterine , active labor, advanced cervical dilation , grand multiparity. Delivered precipitously upon arrival in labor and delivery. History and physical, review of systems done after delivery and prior to delivery and clinic. 2. Risks with the : Grand multiparity and age of 40 3. Patient desired natural labor 4. Patient plans to breast-feed Plan: 1. Routine care. 2. Support breast-feeding decision 3. Home within 24-48 hours.
--- NOTE | 2020-03-25 18:32 | PCM.SN.2 ---
- Free Text/Narrative Note: Delivery note: Teresa delivered approximately 25 minutes after arriving in labor and delivery. She had a provider unintended delivery. She presented to clinic in active labor with advanced cervical dilation. She was transferred to labor and delivery at approximately 1317 hrs. on 03/25/2020. I was called at 1355 hrs. to come to labor and delivery stat. Upon arrival in labor and delivery patient was noted to have delivered and cord was already clamped and cut at that time. Baby appeared to be doing well. It was readily apparent that patient had had gross meconium-stained amniotic fluid. Dr. Sutherland, supply technician, had been called. The patient is presently at 40 weeks gestational age with an DES of 03/25/2020. With an DES of 03/25/2020. She is a 10 now para 10 00 10. He occurred at 1356 hrs. by nurse report. was a male with Apgars of 8 and 9, a length of 20.5 inches, weight of 3590 g (7 lbs. 15 oz.). Patient delivered over an intact perineum and no vaginal lacerations occurred. Cord blood was obtained. The umbilical cord had 3 vessels present. Umbilical cord was longer than average. The placenta delivered at 1401 hrs. in a Cunningham presentation. It appeared intact and complete and was discarded per patient desire. Estimated blood loss was 200 mL. Patient plans to nurse. Condition: Good
--- NOTE | 2020-03-26 05:35 | PCM.SN.2 ---
- Free Text/Narrative Note: note: Patient is doing well in the period. Minimal lochia, voiding well, ambulated without problems. Nursing without concerns. Patient is afebrile, vital signs are stable Abdomen is flat, soft, uterus is below the umbilicus and is firm and nontender. Legs are nontender. Assessment: recovery going well. Plan: Routine care. Patient be discharged home within the next 24-48 hours.
[2020-03-26 09:57] VITALS: BP 108/86; PULSE 74
--- NOTE | 2020-03-26 10:13 | PCM.DCSUM1 ---
Discharge Summary - Hospital Course Free Text/Narrative:: Niurka is a 40-year-old 10 now para 10 00 10 white female who was admitted on 03/25/2020. Teresa delivered approximately 25 minutes after arriving in labor and delivery. She had a provider unintended delivery. She presented to clinic in active labor with advanced cervical dilation. She was transferred to labor and delivery at approximately 1317 hrs. on 03/25/2020. I was called at 1355 hrs. to come to labor and delivery stat. Upon arrival in labor and delivery patient was noted to have delivered and cord was already clamped and cut at that time. Baby appeared to be doing well. It was readily apparent that patient had had gross meconium-stained amniotic fluid. Dr. Sutherland , manufacturing quality technician, had been called. The patient is presently at 40 weeks gestational age with an DES of 03/25/2020. She is a 10 now para 10 00 10. The patient delivered at 1356 hrs. by nurse report. was a male with Apgars of 8 and 9, a length of 20.5 inches, weight of 3590 g (7 lbs. 15 oz.). Patient delivered over an intact perineum and no vaginal lacerations occurred. Cord blood was obtained. The umbilical cord had 3 vessels present. Umbilical cord was longer than average. The placenta delivered at 1401 hrs. in a Cunningham presentation. It appeared intact and complete and was discarded per patient desire. Estimated blood loss was 200 mL. Patient plans to nurse. Condition: Good Diagnosis: Stroke: No - Discharge Data Discharge Date: 03/26/20 Discharge Disposition: Home, Self-Care 01 Condition: Good - Referral to Home Health Primary Care Physician: Abel Knox MD - Patient Instructions Diet: Regular Diet as Tolerated (Nursing diet was increased calories and calcium is recommended) Activity: As Tolerated (No intercourse tampons until bleeding resolves) Driving: May Drive Today Showering/Bathing: May Shower (May take a bath) Notify Provider of: Fever, Increased Pain, Swelling and Redness, Nausea and/or Vomiting - Discharge Plan Home Medications: Home Meds Lactobacillus Acidophilus [Probiotic] 1 tab PO DAILY 06/29/14 [History] 48/Iron/Folic Acid/B6 [Citranatal B-Calm Combo Pack] 1 each PO DAILY [History] Acetaminophen [Tylenol] 650 mg PO Q4H PRN tablet 02/11/18 [Rx] Benzocaine/Menthol [Dermoplast Pain Relief [place]] 1 spray TOP ASDIRECTED PRN canister 02/11/18 [Rx] Docusate Sodium [Colace] 100 mg PO BID PRN cap 02/11/18 [Rx] Ibuprofen [IJD: Ibuprofen] 600 mg PO Q4H PRN tablet 02/11/18 [Rx] Lanolin [Lansinoh HPA] 1 applic TOP ASDIRECTED PRN tube 02/11/18 [Rx] Acetaminophen [Tylenol] 650 mg PO Q4H PRN tablet 03/26/20 [Rx] Ibuprofen [Motrin] 600 mg PO Q4H PRN tablet 03/26/20 [Rx] - Discharge Summary/Plan Comment DC Time >30 min.: No Discharge Summary/Plan Comment: Discharge instructions: 1. Discharge home 2. Diet, activity and follow-up discussed with patient. Recommend nursing diet with increased calories and calcium. 3. Precautions given concern increased pain, bleeding, temperature, signs/ symptoms of DVT/PE. 4. Medications per home medication was printed, discussed with and given to the patient. 5. Return to clinic-Dr. Knox[facility] in 2-6 weeks. Diagnosis: Term -delivered Condition: Good - Patient Data Vitals - Most Recent: Last Vital Signs Temp 36.7 C 03/26/20 07:49 Pulse 74 03/26/20 07:49 Resp 16 03/26/20 07:49 BP 108/86 03/26/20 07:49 Pulse Ox 99 03/26/20 07:49 Weight - Most Recent: 68.946 kg Lab Results - Last 24 hrs: Laboratory Results - last 24 hr 03/25/20 03/25/20 03/25/20 Range/Units 13:50 13:50 13:50 WBC 14.61 H (3.98-10.04) K/mm3 RBC 5.15 (3.98-5.22) M/mm3 Hgb 14.3 (11.2-15.7) gm/dl Hct 42.9 (34.1-44.9) % MCV 83.3 (79.4-94.8) fl MCH 27.8 (25.6-32.2) pg MCHC 33.3 (32.2-35.5) g/dl RDW Std Deviation 41.5 (36.4-46.3) fL Plt Count 192 (182-369) K/mm3 MPV 11.5 (9.4-12.3) fl Neut % (Auto) 82.4 H (34.0-71.1) % Lymph % (Auto) 10.9 L (19.3-51.7) % [place] % (Auto) 5.9 (4.7-12.5) % Eos % (Auto) 0.3 L (0.7-5.8) Baso % (Auto) 0.1 (0.1-1.2) % Neut # (Auto) 12.04 H (1.56-6.13) K/mm3 Lymph # (Auto) 1.59 (1.18-3.74) K/mm3 [place] # (Auto) 0.86 H (0.24-0.36) K/mm3 Eos # (Auto) 0.05 (0.04-0.36) K/mm3 Baso # (Auto) 0.01 (0.01-0.08) K/mm3 RPR Non-reactive (NONREACTIVE) Blood Type B POSITIVE Gel Antibody Screen Negative Med Orders - Current: Current Medications Acetaminophen (Tylenol) 650 mg PO Q4H PRN PRN Reason: mild pain or fever Docusate Sodium (Colace) 100 mg PO BID PRN PRN Reason: Constipation Lactated Ringer's (Ringers, Lactated) 1,000 mls @ 100 mls/hr IV ASDIRECTED [place]YTON Oxytocin/Lactated Ringer's (Pitocin In Lr 10 Units/1,000 Ml) 10 unit in 1,000 mls @ 500 mls/hr IV .CONTINUOUS [place] Ibuprofen (Motrin) 600 mg PO Q4H PRN PRN Reason: Mild pain or fever Nalbuphine HCl (Nubain) 10 mg IVPUSH Q2H PRN PRN Reason: Pain Sodium Chloride (Saline Flush) 10 ml FLUSH ASDIRECTED PRN PRN Reason: Keep Vein Open Discontinued Medications Lidocaine HCl (Xylocaine 1%) 10 ml INJECT ONETIME ONE Stop: 03/25/20 18:01 Last Admin: 03/25/20 19:11 Dose: Not Given
== END 2020-03-26 15:15 | disposition home or self-care (01) | DRG 807 ==
LOC: JD.OBCHECK 13:13 → JD.OB 13:14 → OBSVTOIN 13:56 → JD.OB 14:18
PROVIDERS: ADMIT Obstetrics & Gynecology; ATTEND Obstetrics & Gynecology
PROC: 10E0XZZ Delivery of Products of Conception, External Approach (ICD-10-PCS; principal; 2020-03-25)
DX: O48.0 Post-term pregnancy (principal); Z37.0 Single live birth; Z3A.40 40 weeks gestation of pregnancy; O62.3 Precipitate labor; O77.0 Labor and delivery complicated by meconium in amniotic fluid
CPT/HCPCS: 36415; 59025; 59409; 85025; 86592; 86850; 86900; 86901

== ENCOUNTER 2022-08-05 18:32 | Inpatient (IN) | payer SELFPAY ==
[2022-08-05] MEDS ORDERED: Sodium Chloride 0.9% 10 ML Syringe FLUSH PRN (18:53)
[2022-08-05] MEDS ORDERED: Nalbuphine HCl 10 MG/ 1ML Amp IVPUSH PRN (18:53)
[2022-08-05] MEDS ORDERED: Lactated Ringers 1,000 ML IV SCH (19:00)
[2022-08-05] MEDS ORDERED: Oxytocin/Lactated Ringers 10 UNIT/1,000 ML BAG IV SCH (19:00)
[2022-08-05] MEDS ORDERED: Sodium Chloride 0.9% 10 ML Syringe FLUSH SCH (21:00)
[2022-08-05] MEDS ORDERED: Docusate Sodium 100 MG Cap PO PRN (21:28)
[2022-08-05] MEDS ORDERED: Benzocaine/Menthol 20%-0.5% Spray 78 GM Cannister TOP PRN (21:28)
[2022-08-05] MEDS ORDERED: Ibuprofen 600 MG Tab PO PRN (21:28)
[2022-08-05] MEDS ORDERED: Magnesium Hydroxide 400 MG/5 ML Susp 30 ML Cup PO PRN (21:28)
[2022-08-05] MEDS ORDERED: Witch Hazel Medicated Pads 40/Jar TOP PRN (21:28)
[2022-08-05] MEDS ORDERED: Hydrocortisone Acetate 25 MG Supp RECTAL PRN (21:28)
[2022-08-05] MEDS ORDERED: Acetaminophen 325 MG Tab PO PRN (21:28)
[2022-08-06] MEDS ORDERED: Prenatal Multivitamin with Calcium/Folic Acid/Iron Tab PO SCH (09:00)
[2022-08-06 20:55] VITALS: BP 117/82; PULSE 77
== END 2022-08-06 20:45 | disposition home or self-care (01) | DRG 807 ==
LOC: JD.OBCHECK 18:32 → JD.OB 18:37 → JD.OBCHECK 18:53 → JD.OB 19:11 → OBSVTOIN 20:11 → JD.OB 20:12
PROVIDERS: ADMIT Obstetrics & Gynecology; ATTEND Obstetrics & Gynecology
PROC: 10E0XZZ Delivery of Products of Conception, External Approach (ICD-10-PCS; principal; 2022-08-05)
PROC: 10907ZC Drainage of Amniotic Fluid, Therapeutic from Products of Conception, Via Natural or Artificial Opening (ICD-10-PCS; 2022-08-05)
DX: O80 Encounter for full-term uncomplicated delivery (principal); Z37.0 Single live birth; Z3A.38 38 weeks gestation of pregnancy
CPT/HCPCS: 36415; 59025; 59409; 85025; 86592